=== PATIENT | female | born 1990 | race African-American/Black ===

== ENCOUNTER 2018-03-10 06:30 | Emergency (ER) | payer SELFPAY ==
[~2018-03-10] VITALS: Ht 167.6 cm; Wt 149.5 kg
[2018-03-10] MEDS ORDERED: HUMALOG100 U/ML SQ (06:45)
[2018-03-10] MEDS ORDERED: VALTREX 50500 MG/TAB PO (06:46)
[2018-03-10] MEDS ORDERED: PROZAC 10MG10 MG PO (06:46)
[2018-03-10] MEDS ORDERED: XANAX 1MG1 MG PO (06:46)
[2018-03-10 08:46] VITALS: BP 133/80; PULSE 80; TEMP 98.1
== END 2018-03-10 08:47 | disposition home or self-care (01) ==
LOC: COL.ER 06:30
DX: B34.9 Viral infection, unspecified (principal); E11.9 Type 2 diabetes mellitus without complications; F41.9 Anxiety disorder, unspecified; F17.210 Nicotine dependence, cigarettes, uncomplicated; Z98.890 Other specified postprocedural states; Z79.4 Long term (current) use of insulin

== ENCOUNTER 2019-03-21 16:28 | Emergency (ER) | payer MEDICAID ==
[~2019-03-21] VITALS: Ht 165.1 cm; Wt 150.0 kg
[~2019-03-21 16:28] MED LIST: HUMALOG100 U/ML SQ; PROZAC 10MG10 MG PO; VALTREX 50500 MG/TAB PO; XANAX 1MG1 MG PO
[2019-03-21 16:39] VITALS: TEMP 98
[2019-03-21 17:28] LABS: BASO % 0.3 % (0.0-2.0); EOS # 0.1 (0.0-0.7); EOS % 0.8 % (0-4.0); GRAN # 4.4 (1.4-6.5); GRAN % 57.1 % (42.2-75.2); HEMOGLOBIN 11.2 g/dl (12.5-16.0); LYMPH # 2.5 (1.2-3.4); LYMPH % 32.8 % (20.0-51.0); MEAN CELL VOLUME 62 fl (80.0-100.0); MEAN CORPUSCULAR HEMOGLOBIN 20 pg (27.0-31.0); MEAN CORPUSCULAR HGB CONC 33 g/dl (33.0-37.0); MONO # 0.7 (0.1-0.6); MONO % 8.7 % (1.7-9.3); PLATELET COUNT 259 K/mm3 (130-400); RED BLOOD COUNT 5.55 M/mm3 (4.10-5.30); REDCELL DISTRIBUTION WIDTH-CV 19.6 % (11.5-14.5)
[2019-03-21 17:31] LABS: HEMATOCRIT 34.5 % (37.0-47.0)
[2019-03-21 17:37] LABS: ALBUMIN 3.8 gm/dL (3.5-5.0); BILIRUBIN,TOTAL 0.4 mg/dL (0.0-1.0); CALCIUM 9.2 mg/dL (8.4-10.2); CREATININE, serum 0.54 (0.52-1.25); POTASSIUM 3.9 mmol/L (3.4-5.0); TOTAL PROTEIN 7.8 gm/dL (6.4-8.2)
[2019-03-21] MEDS ORDERED: PHENERGAN 25 TA25 MG PO (19:16)
[2019-03-21] MEDS ORDERED: FLAGYL500 MG PO (19:45)
[2019-03-21 20:00] VITALS: BP 136/90; PULSE 86
== END 2019-03-21 20:01 | disposition home or self-care (01) ==
LOC: COL.ER 16:28
PROVIDERS: Emergency Medicine
DX: N76.0 Acute vaginitis (principal); A59.00 Urogenital trichomoniasis, unspecified; E11.9 Type 2 diabetes mellitus without complications; I10 Essential (primary) hypertension; E66.9 Obesity, unspecified; Z98.890 Other specified postprocedural states; Z68.43 Body mass index [BMI] 50.0-59.9, adult; Z79.4 Long term (current) use of insulin

== ENCOUNTER → 2019-05-13 | Outpatient (CLI) | payer MEDICAID ==
[~2019-05-13] MED LIST changes: +FLAGYL500 MG PO; +PHENERGAN 25 TA25 MG PO
== END ==
LOC: SUN.DIA 05-11 15:32
DX: E11.9 Type 2 diabetes mellitus without complications (principal)
CPT/HCPCS: G0108

== ENCOUNTER 2019-05-23 17:36 | Emergency (ER) | payer MEDICAID ==
[~2019-05-23] VITALS: Ht 165.1 cm; Wt 147.7 kg
[2019-05-23 17:44] VITALS: TEMP 99.3
[2019-05-23 18:59] LABS: COLLECTION METHOD CLEAN CATCH
[2019-05-23 19:10] LABS: MUCOUS Present /lpf; PH 6 (5-8); SQUAMOUS EPITHELIAL 20-50 /hpf; URINE APPEARANCE Cloudy; URINE BACTERIA Many /hpf; URINE BILIRUBIN Negative (NEGATIVE); URINE BLOOD Negative (NEGATIVE); URINE COLOR Yellow; URINE GLUCOSE 2+ (NEGATIVE); URINE KETONE Trace (NEGATIVE); URINE LEUKOCYTE ESTERASE 2+ (NEGATIVE); URINE NITRATE Positive (NEGATIVE); URINE PROTEIN(semi-quant) Negative (NEGATIVE); URINE UROBILINOGEN Negative (NEGATIVE)
[2019-05-23] MEDS ORDERED: MACROBID 1100 MG/CAP PO (19:40)
[2019-05-23 20:00] VITALS: BP 114/82; PULSE 105
== END 2019-05-23 20:30 | disposition home or self-care (01) ==
LOC: COL.ER 17:36
PROVIDERS: Emergency Medicine
DX: O26.892 Other specified pregnancy related conditions, second trimester (principal); R00.2 Palpitations; Z3A.15 15 weeks gestation of pregnancy

== ENCOUNTER → 2019-05-26 | Outpatient (CLI) | payer MEDICAID ==
[~2019-05-26] MED LIST changes: +MACROBID 1100 MG/CAP PO
== END ==
LOC: SUN.DIA 05-19 11:27 → DIA.ED 05-19 15:12
DX: E11.9 Type 2 diabetes mellitus without complications (principal); O24.419 Gestational diabetes mellitus in pregnancy, unspecified control; Z3A.20 20 weeks gestation of pregnancy
CPT/HCPCS: G0108

== ENCOUNTER → 2019-06-09 | Outpatient (CLI) | payer MEDICAID | LOC: DIA.ED 06-03 10:30 | DX: O24.419 Gestational diabetes mellitus in pregnancy, unspecified control (principal); Z3A.20 20 weeks gestation of pregnancy | CPT/HCPCS: G0108 ==

== ENCOUNTER 2019-08-22 19:55 | Outpatient (CLI) | payer MEDICAID ==
[~2019-08-22] VITALS: Ht 165.1 cm; Wt 151.8 kg
--- NOTE | 2019-08-22 20:05 | NUR ---
1999- Pt arrived ambulatory on the unit with concerns for decreased movement. Pt oriented to room. 2004- Pt anxious on arrival. Pt denies any leaking of fluid, vaginal bleeding and/or contractions at this time. EFM and toco monitors started. Audible and palpated movement. Pt reports skipping her morning dose of insulin since she was not eating breakfast due to nausea but also reports her blood sugar was 125 this morning. 2011- Blood pressure WNL. Maternal HR elevated. SPO2 monitor started. 2029- Large amount of emesis. 2049- Spoke with Dr. Jerome. history and pt's concerns reviewed. FHR tracing reviewed. Outpatient orders for blood sugar, UA and zofran ODT received.
--- NOTE | 2019-08-22 20:10 | NUR ---
Pt reports her insulin regimen as: Humulin R 50 units in the morning with breakfast. Humulin R 22 units at bedtime. Pt also reports she checks her blood sugars in the morning, with each meal and at bedtime. Pt denies any use of rescue insulin if blood sugars get too high. Pt reports she increases her water intake if her blood sugar is too high.
[2019-08-22 20:15] VITALS: BP 124/77; PULSE 102; TEMP 98.5
[2019-08-22] MEDS ORDERED: MASON NATURAL2000 IU (20:28)
[2019-08-22] MEDS ORDERED: HUMULIN N 10100 U/ML SQ (20:28)
[2019-08-22] MEDS ORDERED: BONJESTA ER 201 EACH PO (20:29)
[2019-08-22 21:04] LABS: COLLECTION METHOD CLEAN CATCH
--- NOTE | 2019-08-22 21:07 | NUR ---
2106- Zofran given. See EMAR for details. 2109- Blood sugar 237. 2111- Small amount of emesis. 2115- Spoke with Dr. Jerome for an update on pt's status with blood sugar and emesis. Orders for IV, NS 500ml bolus then 125ml/hr and Humulin R 10 units with blood sugar recheck 15 mins after administration.
[2019-08-22 21:12] LABS: MUCOUS Present /lpf; PH 6 (5-8); URINE APPEARANCE Cloudy; URINE BACTERIA Many /hpf; URINE BILIRUBIN Negative (NEGATIVE); URINE BLOOD Negative (NEGATIVE); URINE COLOR Yellow; URINE GLUCOSE 3+ (NEGATIVE); URINE KETONE 1+ (NEGATIVE); URINE LEUKOCYTE ESTERASE 3+ (NEGATIVE); URINE NITRATE Negative (NEGATIVE); URINE PROTEIN(semi-quant) 1+ (NEGATIVE); URINE UROBILINOGEN Negative (NEGATIVE); URINE WBC >50 /hpf
--- NOTE | 2019-08-22 21:16 | NUR ---
2115- results also reviewed with Dr. Jerome. Pt reports being seen at outside facility and was given prescription for antibiotic for bladder infection but was not able to fill it today.
--- NOTE | 2019-08-22 21:55 | NUR ---
IV started with bolus infusing per order. See EMAR for details.
[2019-08-22 22:00] VITALS: BP 140/65; PULSE 95
--- NOTE | 2019-08-22 22:00 | NUR ---
2200- Insulin given. See EMAR for details. 2218- Blood sugar recheck 260. 2220- Spoke with Dr. Jerome for an update on pt's status. Orders for an additional 10 units of insulin to be given. Ok for pt to eat a sandwich. Recheck blood sugar 1 hour after administration. 2245- Insulin given. See EMAR for details. 2250- EFM intermittently tracing due to pt sitting up eating.
--- NOTE | 2019-08-22 23:45 | NUR ---
2345- Blood sugar recheck 229. 2346- Spoke with Dr. Jerome for an update on pt's status. Orders for rocephin 250mg IM to be given. Discharge home with follow up care instructions and precautions. 0000- Plan of care for discharge and antibiotics reviewed with pt. 0017- Rocephin given. See EMAR for details. 0030- Discharge instructions reviewed with pt. Pt verbalized an understanding, agreed with the plan and states no questions or concerns at this time.
== END 2019-08-23 00:30 | disposition home or self-care (01) ==
LOC: LDRO 19:55 → LDR 20:57 → LDRO 08-23 00:30
PROVIDERS: Obstetrics & Gynecology
DX: O36.8130 Decreased fetal movements, third trimester, not applicable or unspecified (principal); Z3A.28 28 weeks gestation of pregnancy
CPT/HCPCS: OP; J0696; J1815; J7030

== ENCOUNTER 2019-09-30 12:36 | Outpatient (CLI) | payer MEDICAID ==
[~2019-09-30] VITALS: Ht 165.1 cm; Wt 158.2 kg
[~2019-09-30 12:36] MED LIST changes: +BONJESTA ER 201 EACH PO; +HUMULIN N 10100 U/ML SQ; +MASON NATURAL2000 IU
--- NOTE | 2019-09-30 12:40 | NUR ---
Patient arrives ambulatory from ER with complaints of nausea, diarrhea, back pain x1 week, and lower abdominal/vaginal pressure. Patient denies contractions, vaginal bleeding or ROM. Reports normal movement. Patient states she ate a sandwich one hour ago and has not taken any insulin today. SVE by this RN closed/thick/high. Patient repositioned LL and assessment completed. BG 207. 1315- Dr. Fabian notified of patient arrival, reviewed patient history. Reviewed SVE, FHR strip and no contractions noted via toco. Notified of blood glucose level. Orders for CC UA, CBC, CMP, start IV and give 1/2 NS bolus 500 ml then run at 125 ml/hr. Give patient normal morning dose of insulin.
[2019-09-30] MEDS ORDERED: HUMALOG100 U/ML SQ (12:54)
[2019-09-30 12:55] VITALS: BP 143/84; PULSE 94; TEMP 97.9
[2019-09-30 13:30] VITALS: BP 143/84; PULSE 94; TEMP 97.9
[2019-09-30 13:58] LABS: COLLECTION METHOD CLEAN CATCH
[2019-09-30 14:02] LABS: BASO % 0.2 % (0.0-2.0); EOS % 0.4 % (0-4.0); GRAN # 5.3 (1.4-6.5); GRAN % 65.8 % (42.2-75.2); LYMPH # 2.3 (1.2-3.4); LYMPH % 28.3 % (20.0-51.0); MEAN CELL VOLUME 62 fl (80.0-100.0); MEAN CORPUSCULAR HGB CONC 32 g/dl (33.0-37.0); MONO # 0.4 (0.1-0.6); MONO % 5.1 % (1.7-9.3); PLATELET COUNT 242 K/mm3 (130-400); RED BLOOD COUNT 4.84 M/mm3 (4.10-5.30); REDCELL DISTRIBUTION WIDTH-CV 18.1 % (11.5-14.5)
[2019-09-30 14:12] LABS: MUCOUS Present /lpf; PH 6 (5-8); SQUAMOUS EPITHELIAL 20-50 /hpf; URINE APPEARANCE Cloudy; URINE BACTERIA Rare /hpf; URINE BILIRUBIN Negative (NEGATIVE); URINE BLOOD Negative (NEGATIVE); URINE COLOR Yellow; URINE GLUCOSE 1+ (NEGATIVE); URINE KETONE Negative (NEGATIVE); URINE LEUKOCYTE ESTERASE Trace (NEGATIVE); URINE NITRATE Negative (NEGATIVE); URINE PROTEIN(semi-quant) Negative (NEGATIVE); URINE UROBILINOGEN Negative (NEGATIVE)
[2019-09-30 14:13] LABS: HEMATOCRIT 30.1 % (37.0-47.0); HEMOGLOBIN 9.5 g/dl (12.5-16.0); MEAN CORPUSCULAR HEMOGLOBIN 20 pg (27.0-31.0)
[2019-09-30 14:29] LABS: ALANINE AMINOTRANSFERASE < 6 U/L (9-52); ALBUMIN 3.4 gm/dL (3.5-5.0); ALKALINE PHOSPHATASE 87 U/L (50-136); ANION GAP 8 mmol/L (7-16); AST,SGOT 17 U/L (15-37); BILIRUBIN,TOTAL 0.3 mg/dL (0.0-1.0); BLOOD UREA NITROGEN 10 mg/dL (7-17); CALCIUM 8.9 mg/dL (8.4-10.2); CARBON DIOXIDE 19 mmol/L (22-30); CHLORIDE 106 mmol/L (98-107); CREATININE, serum 0.57 (0.52-1.25); GLUCOSE 226 mg/dL (74-106); POTASSIUM 3.9 mmol/L (3.4-5.0); SODIUM 133 mmol/L (137-145); TOTAL PROTEIN 7.2 gm/dL (6.4-8.2)
[2019-09-30 14:30] VITALS: BP 137/80; PULSE 93
--- NOTE | 2019-09-30 15:14 | NUR ---
Patient given discharge instructions. Reviewed labor precautions, kick counts, and importance of diabetic management. Discussed comfort measures. Patient denies questions. IV DCd. Patient leaves unit at 1515.
== END 2019-09-30 15:15 | disposition home or self-care (01) ==
LOC: LDRO 12:36
PROVIDERS: Obstetrics & Gynecology
DX: O26.891 Other specified pregnancy related conditions, first trimester (principal); O99.89 Other specified diseases and conditions complicating pregnancy, childbirth and the puerperium; R11.0 Nausea; R19.7 Diarrhea, unspecified; M54.9 Dorsalgia, unspecified
CPT/HCPCS: J1815

== ENCOUNTER 2019-10-25 08:51 | Emergency (ER) | payer MEDICAID ==
[~2019-10-25] VITALS: Ht 167.6 cm; Wt 160.9 kg
[2019-10-25 09:05] VITALS: BP 132/87; PULSE 95; TEMP 98
[2019-10-25] MEDS ORDERED: INSHUMULINN SQ (09:48)
[2019-10-25] MEDS ORDERED: VALTREX 50500 MG/TAB PO (09:52)
== END 2019-10-25 09:13 | disposition other institution (70) ==
LOC: COL.ER 08:51
DX: O21.2 Late vomiting of pregnancy (principal); Z3A.37 37 weeks gestation of pregnancy; Z79.4 Long term (current) use of insulin

== ENCOUNTER 2019-10-25 09:20 | Outpatient (CLI) | payer MEDICAID ==
[~2019-10-25] VITALS: Ht 167.6 cm; Wt 160.9 kg
--- NOTE | 2019-10-25 09:30 | NUR ---
Pt here from ER with c/o N/V/D for 2 days and then contractions and peliv pain that started today. 37.4 weeks gestation, G3L2 with hx of c/section x2. Pt is scheduled for 10/28. Assessment complete. PT with Type 1 DM, pt states she did not check her blood sugar today due to not feeling well. BS checked today and 148. Pt states she did take her insulin today. SVE: closed/thick/high. 0955:Dr Ceballos here and notified. Orders received to give 1 liter of LR and 4mg Zofran IV.
[2019-10-25 09:41] VITALS: BP 134/80; PULSE 98; TEMP 99.3
[2019-10-25] MEDS ORDERED: INSHUMULINN SQ (09:48)
[2019-10-25] MEDS ORDERED: VALTREX 50500 MG/TAB PO (09:52)
[2019-10-25 10:30] VITALS: BP 121/66; PULSE 78
--- NOTE | 2019-10-25 10:30 | NUR ---
Pt sleeping in bed. Denies any nauesa, states the medication worked.
[2019-10-25 11:00] VITALS: BP 131/63; PULSE 93
--- NOTE | 2019-10-25 11:30 | NUR ---
Pt drinking sprite and eating saltine crackers. 1145:pt c/o nausea is back. Pt has not had any vomiting or diarrhea since being at the hospital. Dr Ceballos called. Order to give another dose of Zofran 4mg IV now and DC home. Pt to see physician tomorrow in office for weekly appt. Pt to keep appt and discharge instructions given. Pt verbalizes understanding and will call if symptoms worsen. 1155:Pt to personal vehicle.
== END 2019-10-25 11:55 | disposition home or self-care (01) ==
LOC: LDRO 09:20
DX: O62.9 Abnormality of forces of labor, unspecified (principal); O99.89 Other specified diseases and conditions complicating pregnancy, childbirth and the puerperium; R11.2 Nausea with vomiting, unspecified; R10.2 Pelvic and perineal pain; Z3A.37 37 weeks gestation of pregnancy
CPT/HCPCS: J2405; J7120

== ENCOUNTER 2019-10-28 05:16 | Inpatient (IN) | payer MEDICAID ==
[~2019-10-28] VITALS: Ht 167.6 cm; Wt 167.7 kg
[2019-10-28] VITALS (17 sets, daily range): BP systolic 111–163; BP diastolic 57–94; PULSE 67–100; TEMP 97.6–98.5
--- NOTE | 2019-10-28 05:15 | NUR ---
HER FOR REPEAT SECTION DELIVERY. ADMISSION PROCEEDURES STARTED.
[~2019-10-28 05:16] MED LIST changes: +INSHUMULINN SQ
--- NOTE | 2019-10-28 05:40 | NUR ---
BP 142/[id number] T98.1. ACCUCHECK 150. ABD PREP DONE. CONSENTS OBTAINED. AUNT TO ATTEND DELIVERY
[2019-10-28 06:35] LABS: BASO % 0.1 % (0.0-2.0); EOS # 0.1 (0.0-0.7); EOS % 1.2 % (0-4.0); GRAN # 3.9 (1.4-6.5); GRAN % 50.5 % (42.2-75.2); LYMPH # 3.1 (1.2-3.4); LYMPH % 40.8 % (20.0-51.0); MEAN CELL VOLUME 61 fl (80.0-100.0); MEAN CORPUSCULAR HGB CONC 31 g/dl (33.0-37.0); MONO # 0.5 (0.1-0.6); MONO % 6.9 % (1.7-9.3); PLATELET COUNT 215 K/mm3 (130-400); RED BLOOD COUNT 4.81 M/mm3 (4.10-5.30); REDCELL DISTRIBUTION WIDTH-CV 19.5 % (11.5-14.5)
[2019-10-28 07:01] LABS: HEMATOCRIT 29.3 % (37.0-47.0); HEMOGLOBIN 9.2 g/dl (12.5-16.0); MEAN CORPUSCULAR HEMOGLOBIN 19 pg (27.0-31.0)
--- NOTE | 2019-10-28 13:25 | NUR ---
Patient returned to room and attempted to give am medication and she began to have emesis. Per charge nurse Vanessa RN to hold medication at that time. Abigail had 2 emesis before 1130. At 1230 patient c/o nausea and dizziness. Information given to charge nurse Rory BANKS. Patient given IV Zofran. Patient has stated feels some better at this time.
[2019-10-29 01:35] VITALS: BP 126/61; PULSE 84; TEMP 98.3
[2019-10-29 05:29] VITALS: BP 135/87; PULSE 88; TEMP 97.9
[2019-10-29 08:13] VITALS: BP 128/75; PULSE 86; TEMP 97.8
[2019-10-29] MEDS ORDERED: IBU600 MG PO (08:30)
[2019-10-29] MEDS ORDERED: PERCOCET 325 MG1 TA2 PO (08:30)
--- NOTE | 2019-10-29 10:00 | NUR ---
This am patient awake and alert. Did voice c/o pain and PRN percocet given. Did request medication for constipation and miralx given per order. Family in at this time. Aunt Sandy holding and feeding baby. Mom is pumping during feeding time. States pain is controlled.
--- NOTE | 2019-10-29 10:18 | NUR ---
Initial visit; Patient thanked [employer] for offering congratulations and God's blessings for the of her son. [employer] thanked Tammy for choosing [facility].
--- NOTE | 2019-10-29 11:17 | NUR ---
Patient ambulated in hallway around 1.5 times. Pain at 2 to 3, did voice concern of being constipated, "don't feel consitpated right now, just don't want to be that way when I go home" Patient teaching to take her stool softner, to drink thin liquids such as water. To take her miralax as ordered and this should help her to maintain normal bowel movement. Patient voiced that she "perfers not to take the narcotics cause they do cause constipation. Patient voiced that she spoke with Doctor to take the motrin as ordered like 3 to 4 times a day to help with pain control.
[2019-10-29 16:20] VITALS: BP 147/89; PULSE 101; TEMP 97.6
[2019-10-29 21:20] VITALS: BP 117/53; PULSE 85; TEMP 98.5
[2019-10-30 07:05] VITALS: BP 122/71; PULSE 83; TEMP 98.6
--- NOTE | 2019-10-30 10:51 | NUR ---
Patient did not want to be disturbed and was resting.
[2019-10-30 11:55] VITALS: BP 119/80; PULSE 89; TEMP 97.6
[2019-10-30 16:45] VITALS: BP 135/70; PULSE 88; TEMP 97.9
[2019-10-30 20:00] VITALS: BP 136/70; PULSE 96; TEMP 98.1
--- NOTE | 2019-10-30 23:20 | NUR ---
PT REQUESTS BLOOD SUGAR CHECK SHE IS FEELING IF "IT COULD BE LOW' READING-140 PER UNIT GLUCOMETER
--- NOTE | 2019-10-30 23:30 | NUR ---
CARING FOR BABY- CHANGING TO NEW GOWN. TOLERATES WELL. HAVING SNACK
--- NOTE | 2019-10-31 03:51 | NUR ---
PT SAYS ANKLES FEEL SWOLLEN- SCD BACK ON
[2019-10-31 07:45] VITALS: BP 143/77; PULSE 88; TEMP 98.8
== END 2019-10-31 13:55 | disposition home or self-care (01) | DRG 788 ==
LOC: OB 05:16
PROVIDERS: ADMIT Obstetrics & Gynecology
PROC: 10D00Z1 Extraction of Products of Conception, Low, Open Approach (ICD-10-PCS; principal; 2019-10-28)
DX: O24.12 Pre-existing type 2 diabetes mellitus, in childbirth (principal); O34.211 Maternal care for low transverse scar from previous cesarean delivery; Z3A.38 38 weeks gestation of pregnancy; Z37.0 Single live birth; O99.214 Obesity complicating childbirth; O99.344 Other mental disorders complicating childbirth; F41.9 Anxiety disorder, unspecified; E66.01 Morbid (severe) obesity due to excess calories; E11.65 Type 2 diabetes mellitus with hyperglycemia; O99.02 Anemia complicating childbirth; D64.9 Anemia, unspecified; O99.824 Streptococcus B carrier state complicating childbirth; O99.284 Endocrine, nutritional and metabolic diseases complicating childbirth; E55.9 Vitamin D deficiency, unspecified
CPT/HCPCS: J0690; J1815; J1885; J2270; J2370; J2405; J2590; J7030

== ENCOUNTER 2020-06-16 17:00 | Emergency (ER) | payer MEDICAID ==
[~2020-06-16] VITALS: Ht 167.6 cm; Wt 147.7 kg
[~2020-06-16 17:00] MED LIST changes: +IBU600 MG PO; +PERCOCET 325 MG1 TA2 PO
[2020-06-16 17:09] VITALS: TEMP 96.1
[2020-06-16 18:27] LABS: COLLECTION METHOD CLEAN CATCH
[2020-06-16 18:40] LABS: BASO % 0.4 % (0.0-2.0); EOS # 0.1 (0.0-0.7); EOS % 0.7 % (0-4.0); GRAN # 4.8 (1.4-6.5); GRAN % 64.5 % (42.2-75.2); HEMOGLOBIN 12.1 g/dl (12.5-16.0); LYMPH # 2.1 (1.2-3.4); LYMPH % 27.7 % (20.0-51.0); MEAN CELL VOLUME 63 fl (80.0-100.0); MEAN CORPUSCULAR HEMOGLOBIN 21 pg (27.0-31.0); MEAN CORPUSCULAR HGB CONC 33 g/dl (33.0-37.0); MONO # 0.5 (0.1-0.6); MONO % 6.6 % (1.7-9.3); PLATELET COUNT 246 K/mm3 (130-400); RED BLOOD COUNT 5.85 M/mm3 (4.10-5.30); REDCELL DISTRIBUTION WIDTH-CV 19.2 % (11.5-14.5)
[2020-06-16 18:46] LABS: PH 6 (5-8); SQUAMOUS EPITHELIAL 0-2 /hpf; URINE APPEARANCE Clear; URINE BACTERIA Many /hpf; URINE BILIRUBIN Negative (NEGATIVE); URINE BLOOD Negative (NEGATIVE); URINE COLOR Straw; URINE GLUCOSE 3+ (NEGATIVE); URINE KETONE Negative (NEGATIVE); URINE LEUKOCYTE ESTERASE Negative (NEGATIVE); URINE NITRATE Negative (NEGATIVE); URINE PROTEIN(semi-quant) Negative (NEGATIVE); URINE RBC 0-2 /hpf; URINE UROBILINOGEN Negative (NEGATIVE)
[2020-06-16 18:47] LABS: ALANINE AMINOTRANSFERASE 13 U/L (4-34); ALKALINE PHOSPHATASE 87 U/L (50-136); ANION GAP 8 mmol/L (7-16); AST,SGOT 16 U/L (15-37); BILIRUBIN,TOTAL 0.6 mg/dL (0.0-1.0); BLOOD UREA NITROGEN 11 mg/dL (7-17); C-REACTIVE PROTEIN 1.2 mg/dL (0.0-0.9); CALCIUM 8.7 mg/dL (8.4-10.2); CARBON DIOXIDE 23 mmol/L (22-30); CHLORIDE 102 mmol/L (98-107); CREATININE, serum 0.64 (0.52-1.25); GLUCOSE 258 mg/dL (74-106); LIPASE 133 U/L (23-300); POTASSIUM 3.8 mmol/L (3.4-5.0); SODIUM 133 mmol/L (137-145); TOTAL PROTEIN 8.1 gm/dL (6.4-8.2)
[2020-06-16 18:56] LABS: TROPONIN-I < 0.012 ng/mL (0.000-0.035)
[2020-06-16 19:06] LABS: ACETONE,SERUM NEGATIVE; HEMATOCRIT 36.8 % (37.0-47.0)
[2020-06-16 20:00] VITALS: BP 148/85; PULSE 97
== END 2020-06-16 20:00 | disposition home or self-care (01) ==
LOC: COL.ER 17:00
PROVIDERS: Emergency Medicine
DX: E11.65 Type 2 diabetes mellitus with hyperglycemia (principal); F41.9 Anxiety disorder, unspecified; R07.9 Chest pain, unspecified; R10.9 Unspecified abdominal pain; F17.210 Nicotine dependence, cigarettes, uncomplicated; Z32.02 Encounter for pregnancy test, result negative
CPT/HCPCS: J1815

== ENCOUNTER 2021-01-25 09:25 | Emergency (ER) | payer MEDICAID ==
[~2021-01-25] VITALS: Ht 165.1 cm; Wt 154.1 kg
[2021-01-25 09:35] VITALS: TEMP 99
[2021-01-25 10:45] LABS: STREP SCREEN NEGATIVE
[2021-01-25 11:58] LABS: MONOSCREEN NEGATIVE
[2021-01-25 12:30] VITALS: BP 138/79; PULSE 88
[2021-01-26] MEDS ORDERED: OMNICEF 300MG300 MG PO (16:16)
[2021-07-18] MEDS ORDERED: DIFLUCAN 100MG100 MG PO
== END 2021-01-25 12:30 | disposition home or self-care (01) ==
LOC: COL.ER 09:25
PROVIDERS: Physician Assistant
DX: B34.9 Viral infection, unspecified (principal); F17.210 Nicotine dependence, cigarettes, uncomplicated; Z20.822 Contact with and (suspected) exposure to COVID-19

== ENCOUNTER 2021-01-26 09:51 | Emergency (ER) | payer MEDICAID ==
[~2021-01-26] VITALS: Ht 165.1 cm; Wt 154.1 kg
[2021-01-26 10:02] VITALS: TEMP 100.6
[2021-01-26 11:52] LABS: BASO % 0.2 % (0.0-2.0); EOS # 0.1 (0.0-0.7); EOS % 0.4 % (0-4.0); GRAN # 10.4 (1.4-6.5); HEMATOCRIT 38.5 % (37.0-47.0); HEMOGLOBIN 12.5 g/dl (12.5-16.0); LYMPH # 1.5 (1.2-3.4); LYMPH % 11.8 % (20.0-51.0); MEAN CELL VOLUME 66 fl (80.0-100.0); MEAN CORPUSCULAR HEMOGLOBIN 22 pg (27.0-31.0); MEAN CORPUSCULAR HGB CONC 33 g/dl (33.0-37.0); MONO # 0.9 (0.1-0.6); MONO % 7.2 % (1.7-9.3); PLATELET COUNT 256 K/mm3 (130-400); RED BLOOD COUNT 5.82 M/mm3 (4.10-5.30); REDCELL DISTRIBUTION WIDTH-CV 16.3 % (11.5-14.5)
[2021-01-26 12:05] LABS: ALBUMIN 4.1 gm/dL (3.5-5.0); BILIRUBIN,TOTAL 0.7 mg/dL (0.0-1.0); CALCIUM 8.8 mg/dL (8.4-10.2); CREATININE, serum 0.57 (0.52-1.25); POTASSIUM 3.9 mmol/L (3.4-5.0); TOTAL PROTEIN 8.2 gm/dL (6.4-8.2)
[2021-01-26 14:17] LABS: COLLECTION METHOD CLEAN CATCH
[2021-01-26 15:37] LABS: PH 6 (5-8); URINE APPEARANCE Cloudy; URINE BACTERIA Occasional /hpf; URINE BILIRUBIN Negative (NEGATIVE); URINE BLOOD 3+ (NEGATIVE); URINE COLOR Yellow; URINE GLUCOSE 3+ (NEGATIVE); URINE KETONE 1+ (NEGATIVE); URINE LEUKOCYTE ESTERASE 1+ (NEGATIVE); URINE NITRATE Positive (NEGATIVE); URINE PROTEIN(semi-quant) Negative (NEGATIVE); URINE RBC 20-50 /hpf; URINE UROBILINOGEN Negative (NEGATIVE)
[2021-01-26 16:13] VITALS: BP 129/83; PULSE 99
[2021-01-26] MEDS ORDERED: OMNICEF 300MG300 MG PO (16:16)
[2021-01-27] MEDS ORDERED: ZOFRAN ODT4 MG PO (14:13)
[2021-07-18] MEDS ORDERED: DIFLUCAN 100MG100 MG PO
== END 2021-01-26 16:30 | disposition home or self-care (01) ==
LOC: COL.ER 09:51
PROVIDERS: Physician Assistant
DX: N12 Tubulo-interstitial nephritis, not specified as acute or chronic (principal); B34.8 Other viral infections of unspecified site; R55 Syncope and collapse; F17.210 Nicotine dependence, cigarettes, uncomplicated; Z20.822 Contact with and (suspected) exposure to COVID-19; Z88.4 Allergy status to anesthetic agent
CPT/HCPCS: J0696; J2405; J7030; J7120

== ENCOUNTER 2021-01-27 10:41 | Emergency (ER) | payer MEDICAID ==
[~2021-01-27] VITALS: Ht 165.1 cm; Wt 154.1 kg
[~2021-01-27 10:41] MED LIST changes: +OMNICEF 300MG300 MG PO
[2021-01-27 12:41] LABS: ALBUMIN 3.8 gm/dL (3.5-5.0); BILIRUBIN,TOTAL 0.7 mg/dL (0.0-1.0); CALCIUM 8.5 mg/dL (8.4-10.2); CREATININE, serum 0.54 (0.52-1.25); POTASSIUM 3.9 mmol/L (3.4-5.0); TOTAL PROTEIN 7.7 gm/dL (6.4-8.2)
[2021-01-27 12:42] LABS: BASO % 0.3 % (0.0-2.0); GRAN # 4.9 (1.4-6.5); GRAN % 68.6 % (42.2-75.2); HEMOGLOBIN 11.6 g/dl (12.5-16.0); LYMPH # 1.6 (1.2-3.4); LYMPH % 22.8 % (20.0-51.0); MEAN CELL VOLUME 66 fl (80.0-100.0); MEAN CORPUSCULAR HEMOGLOBIN 21 pg (27.0-31.0); MEAN CORPUSCULAR HGB CONC 32 g/dl (33.0-37.0); MEAN PLATELET VOLUME 11.5 fl (7.4-10.4); MONO # 0.6 (0.1-0.6); MONO % 7.9 % (1.7-9.3); PLATELET COUNT 233 K/mm3 (130-400); RED BLOOD COUNT 5.46 M/mm3 (4.10-5.30); REDCELL DISTRIBUTION WIDTH-CV 16.2 % (11.5-14.5)
[2021-01-27 12:51] LABS: HEMATOCRIT 35.9 % (37.0-47.0)
[2021-01-27] MEDS ORDERED: ZOFRAN ODT4 MG PO (14:13)
[2021-01-27 14:42] VITALS: BP 116/79; PULSE 98; TEMP 97.8
[2021-07-18] MEDS ORDERED: DIFLUCAN 100MG100 MG PO
== END 2021-01-27 14:40 | disposition home or self-care (01) ==
LOC: COL.ER 10:41
PROVIDERS: Nurse Practitioner
DX: N12 Tubulo-interstitial nephritis, not specified as acute or chronic (principal); F17.210 Nicotine dependence, cigarettes, uncomplicated
CPT/HCPCS: J0696; J1885; J7030

== ENCOUNTER 2021-03-16 12:06 | Emergency (ER) | payer MEDICAID ==
[~2021-03-16] VITALS: Ht 167.6 cm; Wt 154.1 kg
[~2021-03-16 12:06] MED LIST changes: +ZOFRAN ODT4 MG PO
[2021-03-16 13:00] LABS: BASO % 0.4 % (0.0-2.0); EOS # 0.1 (0.0-0.7); EOS % 0.8 % (0-4.0); GRAN # 4.8 (1.4-6.5); GRAN % 62.3 % (42.2-75.2); HEMATOCRIT 38.4 % (37.0-47.0); HEMOGLOBIN 12.1 g/dl (12.5-16.0); LYMPH # 2.2 (1.2-3.4); LYMPH % 28.8 % (20.0-51.0); MEAN CELL VOLUME 64 fl (80.0-100.0); MEAN CORPUSCULAR HEMOGLOBIN 20 pg (27.0-31.0); MEAN CORPUSCULAR HGB CONC 32 g/dl (33.0-37.0); MONO # 0.6 (0.1-0.6); MONO % 7.4 % (1.7-9.3); PLATELET COUNT 267 K/mm3 (130-400); REDCELL DISTRIBUTION WIDTH-CV 17.4 % (11.5-14.5)
[2021-03-16 13:18] LABS: ALANINE AMINOTRANSFERASE 15 U/L (4-34); ALBUMIN 3.8 gm/dL (3.5-5.0); ALKALINE PHOSPHATASE 99 U/L (50-136); ANION GAP 11 mmol/L (7-16); AST,SGOT 19 U/L (15-37); BILIRUBIN,TOTAL 0.4 mg/dL (0.0-1.0); BLOOD UREA NITROGEN 11 mg/dL (7-17); CALCIUM 8.5 mg/dL (8.4-10.2); CARBON DIOXIDE 20 mmol/L (22-30); CHLORIDE 100 mmol/L (98-107); CREATININE, serum 0.51 (0.52-1.25); POTASSIUM 3.9 mmol/L (3.4-5.0); SODIUM 131 mmol/L (137-145); TOTAL PROTEIN 8.2 gm/dL (6.4-8.2)
[2021-03-16 13:29] LABS: GLUCOSE 540 mg/dL (74-106)
[2021-03-16 13:30] LABS: TROPONIN-I < 0.012 ng/mL (0.000-0.035)
[2021-03-16 14:15] VITALS: BP 136/104; PULSE 97; TEMP 98.1
[2021-07-18] MEDS ORDERED: DIFLUCAN 100MG100 MG PO
== END 2021-03-16 14:17 | disposition home or self-care (01) ==
LOC: COL.ER 12:06
PROVIDERS: Family Medicine
DX: E11.65 Type 2 diabetes mellitus with hyperglycemia (principal); N12 Tubulo-interstitial nephritis, not specified as acute or chronic; Z88.4 Allergy status to anesthetic agent
CPT/HCPCS: J1815; J7120

== ENCOUNTER 2021-04-21 06:07 | Emergency (ER) | payer MEDICAID ==
[~2021-04-21] VITALS: Ht 165.1 cm; Wt 150.9 kg
[2021-04-21 07:12] LABS: BASO % 0.2 % (0.0-2.0); EOS % 0.4 % (0-4.0); GRAN # 2.6 (1.4-6.5); HEMOGLOBIN 11.3 g/dl (12.5-16.0); LYMPH # 1.9 (1.2-3.4); LYMPH % 39.1 % (20.0-51.0); MEAN CELL VOLUME 62 fl (80.0-100.0); MEAN CORPUSCULAR HEMOGLOBIN 21 pg (27.0-31.0); MEAN CORPUSCULAR HGB CONC 33 g/dl (33.0-37.0); MONO # 0.4 (0.1-0.6); MONO % 8.1 % (1.7-9.3); PLATELET COUNT 233 K/mm3 (130-400); RED BLOOD COUNT 5.48 M/mm3 (4.10-5.30); REDCELL DISTRIBUTION WIDTH-CV 17.7 % (11.5-14.5)
[2021-04-21 07:15] LABS: HEMATOCRIT 33.9 % (37.0-47.0)
[2021-04-21 07:22] LABS: ALANINE AMINOTRANSFERASE 13 U/L (4-34); ALBUMIN 3.4 gm/dL (3.5-5.0); ALKALINE PHOSPHATASE 80 U/L (50-136); ANION GAP 7 mmol/L (7-16); AST,SGOT 16 U/L (15-37); BILIRUBIN,TOTAL 0.2 mg/dL (0.0-1.0); BLOOD UREA NITROGEN 12 mg/dL (7-17); CARBON DIOXIDE 22 mmol/L (22-30); CHLORIDE 103 mmol/L (98-107); CREATININE, serum 0.51 (0.52-1.25); GLUCOSE 349 mg/dL (74-106); POTASSIUM 3.8 mmol/L (3.4-5.0); SODIUM 133 mmol/L (137-145); TOTAL PROTEIN 7.2 gm/dL (6.4-8.2)
[2021-04-21 07:40] LABS: C-REACTIVE PROTEIN < 0.5 mg/dL (0.0-0.9)
[2021-04-21 10:38] VITALS: BP 127/84; PULSE 85; TEMP 98.9
[2021-07-18] MEDS ORDERED: DIFLUCAN 100MG100 MG PO
== END 2021-04-21 10:39 | disposition home or self-care (01) ==
LOC: COL.ER 06:07
PROVIDERS: Emergency Medicine
DX: U07.1 COVID-19 (principal); E11.9 Type 2 diabetes mellitus without complications; F17.210 Nicotine dependence, cigarettes, uncomplicated
CPT/HCPCS: J7030; Q0243

== ENCOUNTER 2021-10-21 04:26 | Emergency (ER) | payer MEDICAID ==
[~2021-10-21] VITALS: Ht 167.6 cm; Wt 147.7 kg
[~2021-10-21 04:26] MED LIST changes: +DIFLUCAN 100MG100 MG PO
[2021-10-21 04:34] VITALS: TEMP 98
[2021-10-21 05:19] LABS: COLLECTION METHOD CLEAN CATCH
[2021-10-21 05:25] LABS: PH 6 (5-8); URINE APPEARANCE Hazy (CLEAR/HAZY); URINE BACTERIA None Seen (NONE SEEN); URINE BILIRUBIN Negative (NEGATIVE); URINE BLOOD Negative (NEGATIVE); URINE COLOR Straw (YELLOW); URINE GLUCOSE 3+ (NEGATIVE); URINE KETONE Trace (NEGATIVE); URINE LEUKOCYTE ESTERASE Negative (NEGATIVE); URINE NITRATE Negative (NEGATIVE); URINE PROTEIN(semi-quant) Negative (NEGATIVE); URINE RBC 0-2 /hpf (0-2); URINE UROBILINOGEN Negative (NEGATIVE)
[2021-10-21] MEDS ORDERED: AMOXICILLIN 8751 TAB PO (05:56)
[2021-10-21 06:13] VITALS: BP 153/97; PULSE 98
== END 2021-10-21 06:15 | disposition home or self-care (01) ==
LOC: COL.ER 04:26
PROVIDERS: Emergency Medicine
DX: J32.9 Chronic sinusitis, unspecified (principal); E11.9 Type 2 diabetes mellitus without complications; Z20.822 Contact with and (suspected) exposure to COVID-19; Z86.16 Personal history of COVID-19; Z87.891 Personal history of nicotine dependence

== ENCOUNTER 2021-10-26 13:02 | Emergency (ER) | payer MEDICAID ==
[~2021-10-26] VITALS: Ht 165.1 cm; Wt 151.8 kg
[~2021-10-26 13:02] MED LIST changes: +AMOXICILLIN 8751 TAB PO
[2021-10-26 13:12] VITALS: TEMP 98.6
[2021-10-26 16:38] LABS: BASO % 0.2 % (0.0-2.0); EOS % 0.2 % (0-4.0); GRAN # 7.1 K/mm3 (1.4-6.5); GRAN % 71.4 % (42.2-75.2); HEMATOCRIT 38.3 % (37.0-47.0); HEMOGLOBIN 12.2 g/dl (12.5-16.0); LYMPH # 2.1 K/mm3 (1.2-3.4); LYMPH % 21.7 % (20.0-51.0); MEAN CELL VOLUME 65 fl (80.0-100.0); MEAN CORPUSCULAR HEMOGLOBIN 21 pg (27.0-31.0); MEAN CORPUSCULAR HGB CONC 32 g/dl (33.0-37.0); MEAN PLATELET VOLUME 10.3 fl (7.4-10.4); MONO # 0.6 K/mm3 (0.1-0.6); MONO % 6.3 % (1.7-9.3); PLATELET COUNT 319 K/mm3 (130-400); RED BLOOD COUNT 5.89 M/mm3 (4.10-5.30); REDCELL DISTRIBUTION WIDTH-CV 17.8 % (11.5-14.5)
[2021-10-26 17:04] LABS: ALBUMIN 3.3 gm/dL (3.5-5.0); BILIRUBIN,TOTAL 0.3 mg/dL (0.2-1.2); CREATININE, serum 0.82 mg/dL (0.57-1.11); POTASSIUM 3.8 mmol/L (3.5-4.5); TOTAL PROTEIN 8.6 gm/dL (6.2-8.1)
[2021-10-26] MEDS ORDERED: PERCOCET 325 MG1 TA2 PO (19:22)
[2021-10-26] MEDS ORDERED: AMOXICILLIN 50500 MG PO (19:22)
[2021-10-26 20:01] VITALS: BP 158/107; PULSE 94
== END 2021-10-26 20:01 | disposition home or self-care (01) ==
LOC: COL.ER 13:02
PROVIDERS: Personal Emergency Response Attendant
DX: K04.7 Periapical abscess without sinus (principal); E11.9 Type 2 diabetes mellitus without complications; Z87.891 Personal history of nicotine dependence
CPT/HCPCS: J0696; J7030; Q9967

== ENCOUNTER 2021-11-25 21:05 | Inpatient (IN) | payer MEDICAID ==
[~2021-11-25] VITALS: Ht 167.6 cm; Wt 151.8 kg
[~2021-11-25 21:05] MED LIST changes: +AMOXICILLIN 50500 MG PO
[2021-11-25 23:19] LABS: BASO % 0.3 % (0.0-2.0); EOS # 0.1 K/mm3 (0.0-0.7); EOS % 1.2 % (0.0-4.0); GRAN # 4.2 K/mm3 (1.4-6.5); GRAN % 68.9 % (42.2-75.2); HEMOGLOBIN 10.9 g/dl (12.5-16.0); LYMPH # 1.1 K/mm3 (1.2-3.4); LYMPH % 17.7 % (20.0-51.0); MEAN CELL VOLUME 66 fl (80.0-100.0); MEAN CORPUSCULAR HEMOGLOBIN 21 pg (27-31); MEAN CORPUSCULAR HGB CONC 32 g/dl (33.0-37.0); MEAN PLATELET VOLUME 11.3 fl (7.4-10.4); MONO # 0.7 K/mm3 (0.1-0.6); MONO % 11.6 % (1.7-9.3); PLATELET COUNT 253 K/mm3 (130-400); RED BLOOD COUNT 5.21 M/mm3 (4.10-5.30); REDCELL DISTRIBUTION WIDTH-CV 17.7 % (11.5-14.5)
[2021-11-25 23:23] LABS: HEMATOCRIT 34.3 % (37.0-47.0)
[2021-11-25 23:38] LABS: BILIRUBIN,TOTAL 0.3 mg/dL (0.2-1.2); C-REACTIVE PROTEIN 8.92 mg/dL (0.00-0.50); CALCIUM 8.7 mg/dL (8.4-10.2); CREATININE, serum 0.88 mg/dL (0.57-1.11); POTASSIUM 3.7 mmol/L (3.5-4.5); TOTAL PROTEIN 7.6 gm/dL (6.2-8.1)
[2021-11-26] MEDS ORDERED: CLEOCIN HCL300 MG PO (03:27)
[2021-11-26] MEDS ORDERED: LANTUS SOLOS100 U/ML SQ (03:27)
[2021-11-26] MEDS ORDERED: LEXAPRO 10MG10 MG PO (03:27)
[2021-11-26] MEDS ORDERED: TOPAMAX 100MG100 M1 PO (03:28)
[2021-11-26] MEDS ORDERED: XANAX 1MG1 MG PO (03:28)
[2021-11-26] MEDS ORDERED: GLUCOPHAGE500 MG/TAB PO (03:28)
[2021-11-26] MEDS ORDERED: VALTREX 50500 MG/TAB PO (04:04)
--- NOTE | 2021-11-26 05:23 | NUR ---
31 yo female admitted for further care and management of a skin/soft tissue infection with abscess formation. ht 66 inches wt 151.8 kg (adj wt 96 kg) SCr 0.88 with estimated CrCl >60 ml/min half life 10.6 hr* (based on adj wt) Plan: Patient is unlikely to follow population based kinetics secondary to body habitus. Patient received an initial loading dose of vancomycin 2000 mg x1 in the ED; will give a supplemental loading dose of vancomycin 1000 mg (at 1/2 dosing interval = 6 hours from initial load) for a total loading dose of vancomycin 3000 mg (19.8 mg/kg); followed by a maintenance regimen of vancomycin 1500 mg q12h to target a goal trough of 15-20 mcg/ml. Will follow patient's renal function, micro data, and vancomycin levels as indicated to assess for any necessary changes to regimen. Thank you for this dosing consult.
[2021-11-26 05:34] LABS: BASO % 0.3 % (0.0-2.0); EOS % 0.6 % (0.0-4.0); GRAN # 4.3 K/mm3 (1.4-6.5); GRAN % 65.4 % (42.2-75.2); LYMPH # 1.4 K/mm3 (1.2-3.4); LYMPH % 20.6 % (20.0-51.0); MEAN CELL VOLUME 65 fl (80.0-100.0); MEAN CORPUSCULAR HEMOGLOBIN 21 pg (27-31); MEAN CORPUSCULAR HGB CONC 33 g/dl (33.0-37.0); MEAN PLATELET VOLUME 10.8 fl (7.4-10.4); MONO # 0.8 K/mm3 (0.1-0.6); MONO % 12.8 % (1.7-9.3); PLATELET COUNT 235 K/mm3 (130-400); RED BLOOD COUNT 4.67 M/mm3 (4.10-5.30); REDCELL DISTRIBUTION WIDTH-CV 17.9 % (11.5-14.5)
[2021-11-26 05:35] LABS: HEMATOCRIT 30.2 % (37.0-47.0)
[2021-11-26 05:45] VITALS: BP 111/67; PULSE 94; TEMP 98.5
[2021-11-26 05:47] LABS: CALCIUM 8.1 mg/dL (8.4-10.2); CREATININE, serum 0.72 mg/dL (0.57-1.11); POTASSIUM 3.4 mmol/L (3.5-4.5)
--- NOTE | 2021-11-26 08:24 | NUR ---
CALL FROM DR. DWYER, GENERAL SURGEON. DR. DWYER TO BE UP TO SEE PATIENT. TORB TO KEEP HER NPO. RN REPROTED TO DR. DWYER PATIENTS AC BLOOD SUGAR AT 0815 WAS 237 AND PER SS SHE SHOULD HAVE [address] DWYER OK WITH RN GIVING PATIENT INSULIN PER SLIDING SCALE.
[2021-11-26 08:46] VITALS: BP 108/63; PULSE 87; TEMP 98.2
--- NOTE | 2021-11-26 10:44 | NUR ---
Initial visit attempt; Nurse with patient, [employer] Supervisor left card informing patient of the availability of spiritual care along with [employer] Supervisor's name and phone number.
--- NOTE | 2021-11-26 11:43 | NUR ---
DR. DWYER INTO PATIENT ROOM TO TALK WITH PATIENT ABOUT SURGICAL PROCEDURE THAT WILL TAKE PLACE TODAY.
[2021-11-26 11:48] VITALS: BP 149/83; PULSE 98; TEMP 97.8
--- NOTE | 2021-11-26 12:10 | NUR ---
RN into patients room to obain blood glucose and to have patient sign consent for surgery. Pt asked to speak with Dr. Gee and patient told RN she would like to leave AMA as she does not want to be put to sleep for surgery as she has had negative effects of anesthesia in the past. RN called JOCELYN Fernandez for Dr. Gee and verbalized pt's desire to leave AMA. Rebecca to call Dr. Gee to inform him of patient's desire to leave AMA and to come speak with patient.
--- NOTE | 2021-11-26 14:10 | NUR ---
RN in room with Dr. Bullock, hospitalist. Pt declining surgery and wants to leave AMA. AMA paperwork completed and signed by patient.
--- NOTE | 2021-11-26 15:11 | NUR ---
Pt leaving AMA. AMA paperwork already signed. RN encourage pt to follow physicians recommendations. Return to ER with fever, pain, or worsening pain. Pt verbalized understanding.
--- NOTE | 2021-11-26 15:24 | NUR ---
Discharge paperwork completed, pt leaving AMA. AMA paperworks signed after Dr. Bullock discussed risks with patient. IV discontinued. ABD pads provided for pt to take home. Pt encouraged to follow up with PCP and/or dermotology. Pt encouraged to return to ER with fever or increase in symptoms. Understanding verbalized. Pt dressed and left unit with spouse.
== END 2021-11-26 15:30 | disposition left against medical advice (07) | DRG 603 ==
LOC: COL.ER 21:05 → OB 11-26 03:36
PROVIDERS: Nurse Practitioner; Nurse Practitioner Family; ADMIT Internal Medicine
DX: L02.214 Cutaneous abscess of groin (principal); Z68.43 Body mass index [BMI] 50.0-59.9, adult; E87.2 Acidosis; F31.9 Bipolar disorder, unspecified; F41.9 Anxiety disorder, unspecified; D50.9 Iron deficiency anemia, unspecified; E11.65 Type 2 diabetes mellitus with hyperglycemia; F17.210 Nicotine dependence, cigarettes, uncomplicated; E66.01 Morbid (severe) obesity due to excess calories; A60.00 Herpesviral infection of urogenital system, unspecified; Z79.4 Long term (current) use of insulin; Z91.14 Patient's other noncompliance with medication regimen
CPT/HCPCS: 99223-AI; 99239; J0690; J1815; J2250; J2405; J2543; J2704; J3370; J7030; J7040; J7050; Q9967

== ENCOUNTER 2021-12-10 19:59 | Emergency (ER) | payer MEDICAID ==
[~2021-12-10] VITALS: Ht 165.1 cm; Wt 151.8 kg
[~2021-12-10 19:59] MED LIST changes: +CLEOCIN HCL300 MG PO; +GLUCOPHAGE500 MG/TAB PO; +LANTUS SOLOS100 U/ML SQ; +LEXAPRO 10MG10 MG PO; +TOPAMAX 100MG100 M1 PO
[2021-12-10 20:28] VITALS: TEMP 98.7
[2021-12-10 21:20] LABS: BASO % 0.3 % (0.0-2.0); EOS % 0.5 % (0.0-4.0); GRAN # 4.6 K/mm3 (1.4-6.5); GRAN % 80.1 % (42.2-75.2); HEMATOCRIT 38.4 % (37.0-47.0); HEMOGLOBIN 12.6 g/dl (12.5-16.0); LYMPH # 0.6 K/mm3 (1.2-3.4); LYMPH % 10.9 % (20.0-51.0); MEAN CELL VOLUME 64 fl (80.0-100.0); MEAN CORPUSCULAR HEMOGLOBIN 21 pg (27-31); MEAN CORPUSCULAR HGB CONC 33 g/dl (33.0-37.0); MONO # 0.5 K/mm3 (0.1-0.6); MONO % 7.9 % (1.7-9.3); PLATELET COUNT 271 K/mm3 (130-400); REDCELL DISTRIBUTION WIDTH-CV 18.5 % (11.5-14.5)
[2021-12-10 21:39] LABS: ALANINE AMINOTRANSFERASE 12 U/L (0-55); ALBUMIN 3.5 gm/dL (3.5-5.0); ALKALINE PHOSPHATASE 93 U/L (40-150); ANION GAP 13 mmol/L (7-16); AST,SGOT 16 U/L (5-34); BILIRUBIN,TOTAL 0.3 mg/dL (0.2-1.2); BLOOD UREA NITROGEN 15 mg/dL (7-19); CALCIUM 8.8 mg/dL (8.4-10.2); CARBON DIOXIDE 19 mmol/L (22-29); CHLORIDE 99 mmol/L (98-107); CREATININE, serum 1.11 mg/dL (0.57-1.11); POTASSIUM 4.1 mmol/L (3.5-4.5); SODIUM 131 mmol/L (136-145); TOTAL PROTEIN 8.5 gm/dL (6.2-8.1)
[2021-12-10 21:51] LABS: GLUCOSE 516 mg/dL (70-99); TROPONIN-I < 0.010 ng/mL (0.00-0.033)
[2021-12-11 00:21] VITALS: BP 130/65; PULSE 98
== END 2021-12-11 00:21 | disposition home or self-care (01) ==
LOC: COL.ER 19:59
PROVIDERS: Personal Emergency Response Attendant
DX: U07.1 COVID-19 (principal); I10 Essential (primary) hypertension; E11.9 Type 2 diabetes mellitus without complications; F31.9 Bipolar disorder, unspecified; D57.1 Sickle-cell disease without crisis; F17.210 Nicotine dependence, cigarettes, uncomplicated; Z79.4 Long term (current) use of insulin; Z79.84 Long term (current) use of oral hypoglycemic drugs; Z79.899 Other long term (current) drug therapy
CPT/HCPCS: J1815; J2405; J7030